=== PATIENT | male | born 1970 | race American Indian/Alaskan Native ===

== ENCOUNTER 2018-06-05 18:21 | Emergency (ER) | payer OTHER ==
[2018-06-05] MEDS ORDERED: NA CHLORIDE 0.9% 1,000 ML ONE (19:19)
[2018-06-05] MEDS ORDERED: MECLIZINE HCL 12.5 MG TAB ONE (19:19)
[2018-06-05] MEDS ORDERED: ONDANSETRON 4 MG/2 ML VIAL ONE (19:19)
--- NOTE | 2018-06-05 19:47 | RAD REPORT ---
EXAM DESCRIPTION: CT - Head Brain Wo Cont - 06/05/2018 7:27 pm CLINICAL HISTORY: Headache, acute onset dizziness, vomiting, history of renal carcinoma COMPARISON: None. TECHNIQUE: Helical CT imaging of the head performed. 5 millimeter axial images were generated in bra in and bone window settings. Sagittal and coronal thin section reformatted images were generated and reviewed. All CT scans are performed using dose optimization technique as appropriate and may include automated exposure control or mA/KV adjustment according to patient size. FINDINGS: No intracranial hemorrhage, mass, edema or shift of mid-line structures. No acute infarcti on changes seen. No abnormal extra-axial fluid collections. Ventricles are normal. No significant atr ophy or chronic ischemic change. Mastoid air cells and visualized portions of the paranasal sinuses are clear. No acute bony findings. IMPRESSION: Negative non-contrast CT head examination.
--- NOTE | 2018-06-05 19:57 | RAD REPORT ---
EXAM DESCRIPTION: RAD - Chest Single View - 06/05/2018 7:36 pm CLINICAL HISTORY: Cough COMPARISON: None. TECHNIQUE: AP portable chest image was obtained 1922 hours . FINDINGS: Lungs are clear. Heart and vasculature are normal. No measurable pleural effusion and no p neumothorax. No gross bony abnormality seen. No acute aortic findings suspected. IMPRESSION: No acute cardiopulmonary process.
[2018-06-05 20:02] LABS: Absolute Lymphocytes (CBC) 0.8 K/uL (0.7-4.9); Absolute Monocytes 0.5 K/uL (0.1-1.3); Absolute Neutrophil 6.5 K/uL (1.8-8.0); Basophils % 0.2 % (0-1.3); Eosinophils % 0.5 % (0-4.4); Hematocrit 43.6 % (39.6-49.0); Lymphocytes % 10.5 % (15.3-44.8); MCH 29.7 pg (27.0-35.0); MCV 89.3 fL (80-100); MPV 8.7 fL (7.6-11.3); Monocytes % 5.9 % (3.3-12.3); RBC Red Blood Cell Count 4.88 M/uL (4.33-5.43)
[2018-06-05 20:24] LABS: ALT/SGPT 20 U/L (12-78); AST/SGOT 17 U/L (15-37); Albumin 3.9 g/dL (3.4-5.0); Alkaline Phosphatase 81 U/L (45-117); BUN Blood Urea Nitrogen 16 mg/dL (7-18); Bicarbonate 28 mmol/L (21-32); Bilirubin Direct 0.1 mg/dL (0-0.2); Bilirubin Total 0.7 mg/dL (0.2-1.0); CKMB Creatine Kinase MB < 1.0 ng/mL (0.3-3.6); Creatine Phosphokinase 129 U/L (39-308); Glucose Level 133 mg/dL (74-106); Magnesium 2.4 mg/dL (1.8-2.4); Potassium 4.1 mmol/L (3.5-5.1); Protein, Total 6.6 g/dL (6.4-8.2); Sodium Level 140 mmol/L (136-145)
--- NOTE | 2018-06-05 20:39 | ER ---
Nurse's Notes [facility] Name: Armando Archer Age: 47 yrs Sex: Male : 1970 Arrival Date: 06/05/2018 Time: 18:26 Bed 24 Private MD: None, None Diagnosis: Dizziness and giddiness;Headache;Essential (primary) hypertension Presentation: 06/05 18:30 Presenting complaint: Patient states: sudden onset of dizziness since today around 1500 aa5 and vomited once today. Pt reports dull headache. Transition of care: patient was not received from another setting of care. Onset of symptoms was June 05, 2018. Risk Assessment: Do you want to hurt yourself or someone else? Patient reports no desire to harm self or others. Initial Sepsis Screen: Does the patient meet any 2 criteria? No. Patient's initial sepsis screen is negative. Does the patient have a suspected source of infection? No. Patient's initial sepsis screen is negative. Care prior to arrival: None. 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 - Social history:: Smoking status: Patient/guardian denies using tobacco. - Ebola Screening: : No symptoms or risks identified at this time. - Family history:: not pertinent. Screenin:10 Abuse screen: Denies threats or abuse. Denies injuries from another. Nutritional mg2 screening: No deficits noted. Tuberculosis screening: No symptoms or risk factors identified. Fall Risk None identified. Assessment: 19:09 General: Appears in no apparent distress. comfortable, Behavior is calm, cooperative. mg2 Pain: Denies pain. Neuro: Level of Consciousness is awake, alert, obeys commands, Oriented to person, place, time, situation. Cardiovascular: Capillary refill < 3 seconds Patient's skin is warm and dry. Respiratory: Airway is patent Respiratory effort is even, unlabored, Respiratory pattern is regular, symmetrical. GI: Reports nausea, vomiting. : No signs and/or symptoms were reported regarding the genitourinary system. EENT: No signs and/or symptoms were reported regarding the EENT system. Derm: Skin is intact, Skin is pink, warm \T\ dry. normal. Musculoskeletal: No signs and/or symptoms reported regarding the musculoskeletal system. Vital Signs: 18:31 BP 142 / 98; Pulse 77; Resp 18 S; Temp 98.0(TE); Pulse Ox 99% on R/A; Weight 74.84 kg aa5 (R); Height 5 ft. 10 in. (177.80 cm) (R); Pain 5/10; 20:00 BP 141 / 95; Pulse 65; Resp 18; Pulse Ox 100% ; Pain 0/10; mg2 21:03 BP 132 / 87 Supine; Pulse 61; Resp 18; Pulse Ox 100% on R/A; Pain 0/10; mg2 21:04 BP 132 / 86 Sitting; mg2 21:04 BP 137 / 99 Standing; mg2 18:31 Body Mass Index 23.67 (74.84 kg, 177.80 cm) aa5 ED Course: 18:26 Patient arrived in ED. mr 18:26 None, None is Private Physician. mr 18:31 Triage completed. aa5 18:31 Arm band placed on. aa5 18:55 Geoffrey Ortiz MD is Attending Physician. alonso 19:08 Harsh Craft RN is Primary Nurse. mg2 19:[address] mw3 19:27 CT completed. Patient tolerated procedure well. Patient moved back from CT. mw3 19:27 CT Head Brain wo Cont In Process Unspecified. EDMS 19:31 X-ray completed. Patient tolerated procedure well. Patient moved to radiology via sw wheelchair. Patient moved back from radiology. 19:32 XRAY Chest (1 view) In Process Unspecified. EDMS 19:51 Inserted saline lock: 20 gauge in right antecubital area, using aseptic technique. mg2 Blood collected. 20:38 Jean Paul Lugo MD is Referral Physician. alonso 21:28 No provider procedures requiring assistance completed. IV discontinued, intact, mg2 bleeding controlled, No redness/swelling at site. Pressure dressing applied. 21:29 Patient has correct armband on for positive identification. mg2 Administered Medications: 19:50 Drug: NS 0.9% 1000 ml Route: IV; Rate: 1 bolus; Site: right antecubital; mg2 21:03 Follow up: Response: No adverse reaction; IV Status: Completed infusion mg2 19:50 Drug: Meclizine 25 mg Route: PO; mg2 21:03 Follow up: Response: No adverse reaction; Nausea is decreased mg2 19:50 Drug: Zofran 2 mg Route: IVP; Site: right antecubital; mg2 21:02 Follow up: Response: No adverse reaction; Nausea is decreased mg2 Point of Care Testing: Blood Glucose: 18:34 Blood Glucose: 140 mg/dL; aa5 Ranges: Outcome: 20:38 Discharge ordered by MD. gupta 21:28 Discharged to home ambulatory. mg2 21:28 Condition: good 21:28 Discharge instructions given to patient, Instructed on discharge instructions, follow up and referral plans. medication usage, Demonstrated understanding of instructions, follow-up care, medications, Prescriptions given X 2. 21:29 Patient left the ED. mg2 Signatures: Dispatcher [employer] EDGeoffrey Ibarra MD MD cha Rivera, Maria mr Calderon, WILI Fiore RN aa5 Monik Crawford Michele, RN RN mg2 Violeta Butler mw3
--- NOTE | 2018-06-05 20:39 | EDPHYS ---
Physician Documentation [facility] Name: Armando Archer Age: 47 yrs Sex: Male : 1970 Arrival Date: 06/05/2018 Time: 18:26 Bed 24 Private MD: None, None ED Physician Geoffrey Ortiz HPI: 06/05 19:11 This 47 yrs old Other Male presents to ER via Ambulatory with complaints of Dizziness, alonso Vomiting. 19:11 The patient presents with dizziness. Onset: The symptoms/episode began/occurred just alonso prior to arrival. Context: occurred at work. Modifying factors: The symptoms are alleviated by nothing, the symptoms are aggravated by nothing. Associated signs and symptoms: The patient has no apparent associated signs or symptoms. Severity of symptoms: At their worst the symptoms were mild in the emergency department the symptoms are unchanged. Patient's baseline: Neuro: alert and fully oriented. The patient has not experienced similar symptoms in the past. 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 - Social history:: Smoking status: Patient/guardian denies using tobacco. - Ebola Screening: : No symptoms or risks identified at this time. - Family history:: not pertinent. ROS: 19:11 Constitutional: Negative for fever, chills, and weight loss, Eyes: Negative for injury, alonso pain, redness, and discharge, ENT: Negative for injury, pain, and discharge, Neck: Negative for injury, pain, and swelling, Cardiovascular: Negative for chest pain, palpitations, and edema, Respiratory: Negative for shortness of breath, cough, wheezing, and pleuritic chest pain, Abdomen/GI: Negative for abdominal pain, nausea, vomiting, diarrhea, and constipation, Back: Negative for injury and pain, : Negative for injury, bleeding, discharge, and swelling, MS/Extremity: Negative for injury and deformity, Skin: Negative for injury, rash, and discoloration, Psych: Negative for depression, anxiety, suicide ideation, homicidal ideation, and hallucinations, Allergy/Immunology: Negative for hives, rash, and allergies, Endocrine: Negative for neck swelling, polydipsia, polyuria, polyphagia, and marked weight changes, Hematologic/Lymphatic: Negative for swollen nodes, abnormal bleeding, and unusual bruising. 19:11 Neuro: Positive for dizziness, headache. Exam: 19:11 Constitutional: This is a well developed, well nourished patient who is awake, alert, alonso and in no acute distress. Head/Face: Normocephalic, atraumatic. Eyes: Pupils equal round and reactive to light, extra-ocular motions intact. Lids and lashes normal. Conjunctiva and sclera are non-icteric and not injected. Cornea within normal limits. Periorbital areas with no swelling, redness, or edema. ENT: Nares patent. No nasal discharge, no septal abnormalities noted. Tympanic membranes are normal and external auditory canals are clear. Oropharynx with no redness, swelling, or masses, exudates, or evidence of obstruction, uvula midline. Mucous membranes moist. Neck: Trachea midline, no thyromegaly or masses palpated, and no cervical lymphadenopathy. Supple, full range of motion without nuchal rigidity, or vertebral point tenderness. No Meningismus. Chest/axilla: Normal chest wall appearance and motion. Nontender with no deformity. No lesions are appreciated. Cardiovascular: Regular rate and rhythm with a normal S1 and S2. No gallops, murmurs, or rubs. Normal PMI, no JVD. No pulse deficits. Respiratory: Lungs have equal breath sounds bilaterally, clear to auscultation and percussion. No rales, rhonchi or wheezes noted. No increased work of breathing, no retractions or nasal flaring. Abdomen/GI: Soft, non-tender, with normal bowel sounds. No distension or tympany. No guarding or rebound. No evidence of tenderness throughout. Back: No spinal tenderness. No costovertebral tenderness. Full range of motion. Male : Normal genitalia with no discharge or lesions. Skin: Warm, dry with normal turgor. Normal color with no rashes, no lesions, and no evidence of cellulitis. MS/ Extremity: Pulses equal, no cyanosis. Neurovascular intact. Full, normal range of motion. Neuro: Awake and alert, GCS 15, oriented to person, place, time, and situation. Cranial nerves II-XII grossly intact. Motor strength 5/5 in all extremities. Sensory grossly intact. Cerebellar exam normal. Normal gait. Psych: Awake, alert, with orientation to person, place and time. Behavior, mood, and affect are within normal limits. Vital Signs: 18:31 BP 142 / 98; Pulse 77; Resp 18 S; Temp 98.0(TE); Pulse Ox 99% on R/A; Weight 74.84 kg aa5 (R); Height 5 ft. 10 in. (177.80 cm) (R); Pain 5/10; 20:00 BP 141 / 95; Pulse 65; Resp 18; Pulse Ox 100% ; Pain 0/10; mg2 21:03 BP 132 / 87 Supine; Pulse 61; Resp 18; Pulse Ox 100% on R/A; Pain 0/10; mg2 21:04 BP 132 / 86 Sitting; mg2 21:04 BP 137 / 99 Standing; mg2 18:31 Body Mass Index 23.67 (74.84 kg, 177.80 cm) aa5 MDM: 18:55 Patient medically screened. [facility] 19:12 Data reviewed: vital signs, nurses notes, lab test result(s), EKG, radiologic studies, [facility] CT scan, plain films. 06/05 19:10 Order name: Basic Metabolic Panel; Complete Time: 20:38 [facility] 06/05 19:10 Order name: CBC with Diff; Complete Time: 20:22 [facility] 06/05 19:10 Order name: Ckmb; Complete Time: 20:38 [facility] 06/05 19:10 Order name: CPK; Complete Time: 20:38 [facility] 06/05 19:10 Order name: LFT's; Complete Time: 20:38 [facility] 06/05 19:10 Order name: Magnesium; Complete Time: 20:38 [facility] 06/05 19:10 Order name: Troponin (emerg Dept Use Only); Complete Time: 20:38 [facility] 06/05 19:10 Order name: XRAY Chest (1 view); Complete Time: 20:22 [facility] 06/05 19:10 Order name: EKG; Complete Time: 19:11 [facility] 06/05 19:10 Order name: CT Head Brain wo Cont; Complete Time: 19:50 [facility] 06/05 19:48 Order name: Urine Dipstick--Ancillary (enter results); Complete Time: 20:51 [facility] 06/05 19:10 Order name: Cardiac monitoring; Complete Time: 19:51 [facility] 06/05 19:10 Order name: EKG - Nurse/Tech; Complete Time: 20:00 [facility] 06/05 19:10 Order name: IV Saline Lock; Complete Time: 19:51 [facility] 06/05 19:10 Order name: Labs collected and sent; Complete Time: :51 [facility] 06/05 19:10 Order name: O2 Per Protocol; Complete Time: 19:51 [facility] 06/05 19:10 Order name: O2 Sat Monitoring; Complete Time: 19:51 [facility] 06/05 19:10 Order name: Urine Dipstick-Ancillary (obtain specimen); Complete Time: :51 [facility] 06/05 20:39 Order name: Vital Signs; Complete Time: 21:05 [facility] 06/05 20:52 Order name: PO challenge; Complete Time: 21: [facility] 06/05 20:52 Order name: Orthostatics; Complete Time: 21:05 [facility] Administered Medications: 19:50 Drug: NS 0.9% 1000 ml Route: IV; Rate: 1 bolus; Site: right antecubital; mg2 21:03 Follow up: Response: No adverse reaction; IV Status: Completed infusion mg2 19:50 Drug: Meclizine 25 mg Route: PO; mg2 21:03 Follow up: Response: No adverse reaction; Nausea is decreased mg2 19:50 Drug: Zofran 2 mg Route: IVP; Site: right antecubital; mg2 21:02 Follow up: Response: No adverse reaction; Nausea is decreased mg2 Point of Care Testing: Blood Glucose: 18:34 Blood Glucose: 140 mg/dL; aa5 Ranges: Critical Glucose Levels:Adult <50 mg/dl or >400 mg/dl <40 mg/dl or >180 mg/dl Disposition: 06/05/18 20:38 Discharged to Home. Impression: Dizziness and giddiness, Headache, Essential (primary) hypertension. - Condition is Stable. - Discharge Instructions: Dizziness, General Headache Without Cause, Hypertension, Vertigo, Hypertension, [id number], How to Take Your Blood Pressure, Herc-ay-Dxix, Vertigo, [id number], General Headache Without Cause, Odhj-qi-Zjrz, Dizziness, Bgwb-yh-Edor, Managing Your High Blood Pressure. - Prescriptions for Meclizine 25 mg Oral Tablet - take 1 tablet by ORAL route every 8 hours As needed; 30 tablet. Zofran 4 mg Oral Tablet - take 1 tablet by ORAL route every 12 hours As needed; 10 tablet. - Medication Reconciliation Form, Thank You Letter, Antibiotic Education, Prescription Opioid Use form. - Follow up: Private Physician; When: 2 - 3 days; Reason: Recheck today's complaints, Continuance of care, Re-evaluation by your physician. Follow up: Jean Paul Lugo; When: 2 - 3 days; Reason: Recheck today's complaints, Re-evaluation by your physician. - Problem is new. - Symptoms have improved. Signatures: Dispatcher [employer] EDCA Geoffrey Ortiz MD MD cha Calderon, Audri RN RN aa5 Harsh Craft RN RN mg2 Corrections: (The following items were deleted from the chart) 21:29 20:38 06/05/2018 20:38 Discharged to Home. Impression: Dizziness and giddiness; mg2 Headache; Essential (primary) hypertension. Condition is Stable. Discharge Instructions: Dizziness, General Headache Without Cause, Vertigo, Vertigo, Ikpy-wa-Lhzd, General Headache Without Cause, Cpsl-jq-Mgzs, Dizziness, Avuz-gj-Mxlp. Prescriptions for Meclizine 25 mg Oral Tablet - take 1 tablet by ORAL route every 8 hours As needed; 30 tablet, Zofran 4 mg Oral Tablet - take 1 tablet by ORAL route every 12 hours As needed; 10 tablet. and Forms are Medication Reconciliation Form, Thank You Letter, Antibiotic Education, Prescription Opioid Use. Follow up: Private Physician; When: 2 - 3 days; Reason: Recheck today's complaints, Continuance of care, Re-evaluation by your physician. Follow up: Jean Paul Lugo; When: 2 - 3 days; Reason: Recheck today's complaints, Re-evaluation by your physician. Problem is new. Symptoms have improved. alonso
[2018-06-05 20:42] LABS: Urine Blood TRACE (NEG); Urine Glucose NEGATIVE (NEG); Urine Protein 1+ (NEG); Urine pH 8.5 (5.0-7.0)
--- NOTE | 2018-06-06 06:32 | EKG ---
Test Date: 2018-06-05 Test Time: 19:54:34 Junior Underwriter: MG MEASUREMENT RESULTS: Intervals: Rate: 0 DC: QRSD: 0 QT: 0 QTc: 0 [place]: P: DC: QRS: 0 T: 0 INTERPRETIVE STATEMENTS: No QRS complexes found, no ECG analysis possible No previous ECG available for comparison Electronically Signed On 06-06-18 06:32:13 CDT by Isaac Worrell
== END 2018-06-05 21:29 | disposition home or self-care (01) ==
LOC: ER 18:21
DX: R51 Headache (principal); I10 Essential (primary) hypertension; Z85.528 Personal history of other malignant neoplasm of kidney
CPT/HCPCS: 36415; 70450; 71045; 80048; 80076; 81003; 82550; 82553; 82962; 83735; 84484; 85025; 93005; 96361; 96374; 99284; J2405; J7030